=== PATIENT | male | born 1965 | race Caucasian/White ===

== ENCOUNTER 2017-02-27 05:59 | Day surgery (SDC) | payer OTHER ==
[~2017-02-27] VITALS: Ht 172.7 cm; Wt 76.2 kg
[2017-02-27 06:37] VITALS: BP 119/61
[2017-02-27 11:17] VITALS: BP 94/71
== END 2017-02-27 09:30 | disposition home or self-care (01) ==
LOC: GI 05:59 → OR 11:30
PROVIDERS: Internal Medicine
PROC: 0DB68ZX Excision of Stomach, Via Natural or Artificial Opening Endoscopic, Diagnostic (ICD-10-PCS; 2017-02-27)
PROC: 0DB58ZX Excision of Esophagus, Via Natural or Artificial Opening Endoscopic, Diagnostic (ICD-10-PCS; principal; 2017-02-27 11:30)
DX: K21.0 Gastro-esophageal reflux disease with esophagitis (principal); K22.70 Barrett's esophagus without dysplasia; R13.10 Dysphagia, unspecified; K29.70 Gastritis, unspecified, without bleeding; G60.0 Hereditary motor and sensory neuropathy; F17.210 Nicotine dependence, cigarettes, uncomplicated; Z80.0 Family history of malignant neoplasm of digestive organs; Z98.84 Bariatric surgery status; Z68.25 Body mass index [BMI] 25.0-25.9, adult
CPT/HCPCS: 43239; J1200; J1610; J2250; J2310; J3010; J3490